=== PATIENT | male | born 1990 | race African-American/Black ===

== ENCOUNTER 2021-02-15 11:39 | Inpatient (IN) | payer BC ==
[~2021-02-15] VITALS: Ht 175.3 cm; Wt 83.7 kg
[2021-02-15] MEDS ORDERED: HYDROCODONE/ACETAMINOPHEN 5/325MG TABLET PO STA (15:04)
[2021-02-15] MEDS ORDERED: MAGNESIUM/ALUMINUM HYDROXIDE/SIMETHICONE 30ML UDC PO STA (15:04)
[2021-02-15] MEDS ORDERED: VISCOUS LIDOCAINE 2% 15 ML UDC PO STA (15:04)
[2021-02-15 15:36] LABS: BASOPHILS % 0.1 % (0.0-2.0); HEMATOCRIT. 48.2 % (42.0-52.0); HEMOGLOBIN. 15.9 g/dL (14.0-18.0); LYMPHOCYTES % 8.1 % (20.0-50.0); MEAN CORPUSCULAR HEMOGLOBIN 30.9 pg (28.0-32.0); MEAN CORPUSCULAR VOLUME 93.5 fL (80.0-94.0); MONOCYTES % 3.4 % (2.0-8.0); NEUTROPHILS % 88.4 % (40.0-76.0); PLATELET 269 x1000/uL (130-400); RED BLOOD CELL COUNT 5.16 mill/uL (4.7-6.1); RED CELL DISTRIBUTION WIDTH 13.5 % (11.6-14.6)
[2021-02-15 15:42] LABS: CHLORIDE 102 mEq/L (98-107)
[2021-02-15 15:47] LABS: PROTHROMBIN TIME 11.2 sec (9.6-11.0)
[2021-02-15 16:20] LABS: CLARITY URINE CLEAR (CLEAR); COLOR URINE YELLOW (YELLOW); KETONES URINE TRACE (NEGATIVE); LEUKOCYTE ESTERASE URINE NEGATIVE (NEGATIVE); NITRITE URINE NEGATIVE (NEGATIVE); OCCULT BLOOD URINE NEGATIVE (NEGATIVE); PROTEIN URINE TRACE (NEGATIVE); SPECIFIC GRAVITY URINE 1.027 (1.005-1.030)
[2021-02-15] MEDS ORDERED: MORPHINE SULFATE 4 MG/ML CPJ (NOT FOR IM USE) IV STA (20:09)
[2021-02-15] MEDS ORDERED: SODIUM CHLORIDE 0.9% 1,000 ML IV ONE (20:15)
[2021-02-15] MEDS ORDERED: MORPHINE SULFATE 2 MG/ML CPJ (NOT FOR IM USE) IV NR (23:00)
[2021-02-15] MEDS ORDERED: IPRATROPIUM/ALBUTEROL 0.5-3(2.5)MG/3ML NEB NEB PRN (23:30)
[2021-02-15] MEDS ORDERED: LORAZEPAM 2MG/ML CPJ IV PRN (23:30)
[2021-02-15] MEDS ORDERED: DOCUSATE SODIUM 100MG CAPSULE PO PRN (23:30)
[2021-02-15] MEDS ORDERED: HYDROCODONE/ACETAMINOPHEN 5/325MG TABLET PO PRN (23:30)
[2021-02-15] MEDS ORDERED: MAGNESIUM/ALUMINUM HYDROXIDE/SIMETHICONE 30ML UDC PO PRN (23:30)
[2021-02-15] MEDS ORDERED: ACETAMINOPHEN 325MG TABLET PO PRN (23:30)
[2021-02-15] MEDS ORDERED: ONDANSETRON HCL 4MG/2ML INJ IV PRN (23:30)
[2021-02-16 01:05] VITALS: BP 108/110
[2021-02-16 01:47] LABS: HEPATITIS B SURFACE ANTIGEN NEGATIVE
[2021-02-16] MEDS: CLONIDINE 0.1MG TABLET PO PRN ×2 (02:02→22:29)
[2021-02-16] MEDS: MORPHINE SULFATE 2 MG/ML CPJ (NOT FOR IM USE) IV PRN ×3 (02:02→13:39)
[2021-02-16 04:00] VITALS: BP 166/105
[2021-02-16 06:19] LABS: BASOPHILS % 0.1 % (0.0-2.0); HEMOGLOBIN. 15.8 g/dL (14.0-18.0); LYMPHOCYTES % 14.4 % (20.0-50.0); MEAN CORPUSCULAR VOLUME 92.6 fL (80.0-94.0); MEAN PLATELET VOLUME 9.9 fl (7.4-10.4); MONOCYTES % 7.3 % (2.0-8.0); NEUTROPHILS % 78.2 % (40.0-76.0); PLATELET 286 x1000/uL (130-400); RED BLOOD CELL COUNT 5.08 mill/uL (4.7-6.1); RED CELL DISTRIBUTION WIDTH 13.5 % (11.6-14.6)
[2021-02-16] MEDS: ENOXAPARIN 40MG/0.4ML SYR SUBCUT SCH (08:51)
[2021-02-16 11:11] LABS: CHLORIDE 101 mEq/L (98-107); HDL CHOLESTEROL 60 mg/dL (40-59)
[2021-02-16 11:14] LABS: CREATINE KINASE 252 IU/L (39-308); CREATINE KINASE MB FRACTION < 1.0 ng/mL (0.5-3.6); LDL CHOLESTEROL 124 mg/dL (5-100)
[2021-02-16 12:00] VITALS: BP 124/85
[2021-02-16] MEDS: MULTIVITAMINS,THER W-MINERALS TABLET PO SCH (13:16)
[2021-02-16] MEDS: FOLIC ACID 1MG TABLET PO SCH (13:16)
[2021-02-16] MEDS: THIAMINE HCL 100MG TABLET PO SCH (13:16)
[2021-02-16] MEDS ORDERED: CHLORDIAZEPOXIDE 5 MG CAPSULE PO SCH (14:00)
[2021-02-16] MEDS ORDERED: HYDROMORPHONE HCL/PF 2MG/ML CPJ IV PRN (15:45)
[2021-02-16 16:00] VITALS: BP 125/83
[2021-02-16 17:53] LABS: CREATINE KINASE 164 IU/L (39-308)
[2021-02-16 17:54] LABS: CREATINE KINASE MB FRACTION < 1.0 ng/mL (0.5-3.6)
[2021-02-16 20:00] VITALS: BP 127/73
[2021-02-16] MEDS ORDERED: ACETAMINOPHEN 650MG SUPP PR PRN (23:15)
[2021-02-16] MEDS ORDERED: ENALAPRIL 2.5MG/2ML VIAL 2ML IV PRN (23:15)
[2021-02-16] MEDS ORDERED: ENALAPRIL 1.25 MG in DEXTROSE 5% WATER 49 ML IV PRN (23:30)
[2021-02-16 23:54] VITALS: BP 121/78
[2021-02-17 04:00] VITALS: BP 127/82
[2021-02-17] MEDS: SODIUM CHLORIDE 0.9% 1,000 ML IV SCH ×2 (04:22→11:52)
[2021-02-17 06:55] LABS: BASOPHILS % 0.2 % (0.0-2.0); EOSINOPHILS % 0.4 % (0.0-5.0); HEMATOCRIT. 43.5 % (42.0-52.0); HEMOGLOBIN. 14.8 g/dL (14.0-18.0); LYMPHOCYTES % 19.6 % (20.0-50.0); MEAN CORPUSCULAR HEMOGLOBIN 31.5 pg (28.0-32.0); MEAN CORPUSCULAR VOLUME 92.6 fL (80.0-94.0); MEAN PLATELET VOLUME 9.5 fl (7.4-10.4); MONOCYTES % 8.3 % (2.0-8.0); NEUTROPHILS % 71.5 % (40.0-76.0); PLATELET 227 x1000/uL (130-400); RED CELL DISTRIBUTION WIDTH 13.1 % (11.6-14.6)
[2021-02-17 07:01] LABS: CHLORIDE 102 mEq/L (98-107)
[2021-02-17 07:09] LABS: AMYLASE 344 IU/L (25-115)
[2021-02-17 08:00] VITALS: BP 130/82
[2021-02-17] MEDS: THIAMINE HCL 100MG TABLET PO SCH (08:45)
[2021-02-17] MEDS: PANTOPRAZOLE SODIUM 40 MG/VIAL IV SCH (08:45)
[2021-02-17] MEDS: MULTIVITAMINS,THER W-MINERALS TABLET PO SCH (08:45)
[2021-02-17] MEDS: ENOXAPARIN 40MG/0.4ML SYR SUBCUT SCH (08:45)
[2021-02-17] MEDS: FOLIC ACID 1MG TABLET PO SCH (08:45)
[2021-02-17 12:00] VITALS: BP 134/87
[2021-02-17 16:00] VITALS: BP 134/83
[2021-02-17 20:00] VITALS: BP 148/97
[2021-02-18] VITALS (7 sets, daily range): BP systolic 132–144; BP diastolic 85–106
[2021-02-18 06:00] LABS: CHLORIDE 107 mEq/L (98-107)
[2021-02-18 06:14] LABS: AMYLASE 160 IU/L (25-115)
[2021-02-18] MEDS ORDERED: POTASSIUM CHLORIDE 20MEQ TABLET SR PO NR (07:30)
[2021-02-18] MEDS: SODIUM CHLORIDE 0.9% 1,000 ML IV SCH (09:38)
[2021-02-18] MEDS: FOLIC ACID 1MG TABLET PO SCH (09:39)
[2021-02-18] MEDS: PANTOPRAZOLE SODIUM 40 MG/VIAL IV SCH (09:39)
[2021-02-18] MEDS: MULTIVITAMINS,THER W-MINERALS TABLET PO SCH (09:39)
[2021-02-18] MEDS: THIAMINE HCL 100MG TABLET PO SCH (09:39)
[2021-02-18] MEDS: ENOXAPARIN 40MG/0.4ML SYR SUBCUT SCH (09:40)
[2021-02-18] MEDS ORDERED: PANT40TA51 MT (10:35)
[2021-02-18] MEDS ORDERED: MULT-230 MT (10:35)
[2021-02-18] MEDS ORDERED: THIA100T72 PO (10:35)
[2021-02-18] MEDS ORDERED: FOLI-43 PO (10:35)
== END 2021-02-18 22:52 | disposition home or self-care (01) | DRG 440 ==
LOC: ER 11:39 → 6EST 22:58 → EDBEDREQTM 23:20 → EDBEDREQ 23:20 → ENRESERV 23:28
PROVIDERS: ADMIT Internal Medicine; ATTEND Internal Medicine
DX: K85.20 Alcohol induced acute pancreatitis without necrosis or infection (principal); K29.70 Gastritis, unspecified, without bleeding; F10.10 Alcohol abuse, uncomplicated; R74.01 Elevation of levels of liver transaminase levels; Y90.0 Blood alcohol level of less than 20 mg/100 ml; I10 Essential (primary) hypertension; Z82.49 Family history of ischemic heart disease and other diseases of the circulatory system; Z71.41 Alcohol abuse counseling and surveillance of alcoholic
CPT/HCPCS: 36415; 76700; 80048; 80053; 80061; 80076; 80320; 81003; 82150; 82550; 82553; 83036; 83735; 84443; 84484; 85025; 86705; 86709; 86803; 87340; 93005; 99285; C9113; J1170; J1650; J2270; J7030; G0480